=== PATIENT | male | born 1930 | race Caucasian/White ===

== ENCOUNTER 2017-05-04 23:20 | Emergency (ER) | payer OTHER ==
[~2017-05-04] VITALS: Ht 165.1 cm; Wt 76.8 kg
[2017-05-05 00:41] LABS: EOSINOPHIL (%) 3.1 % (0-5); EOSINOPHIL COUNT 0.2 K/uL (0-0.3); HEMATOCRIT 41.6 % (38.0-50.0); IMMATURE GRANULOCYTE (%) 0.3 % (0.0-0.7); INSTRUMENT ABS NEUTROPHIL CT 4.5 K/uL; LYMPHOCYTE COUNT 2.3 K/uL (1.0-2.8); MCH 32.1 PG (29.0-34.0); MCHC 34.1 G/DL (30.0-36.0); MCV 93.9 FL (86-99); MEAN PLAT.VOLUME 9.9 uM^3 (9.0-12.4); MONOCYTE (%) 9.1 % (3-12); MONOCYTE COUNT 0.7 K/uL (0-0.8); NEUTROPHIL (%) 58.1 % (45-76); NEUTROPHIL COUNT 4.5 K/uL (1.8-6.4); PLATELET COUNT 213 K/uL (156-360); RBC DIS.WIDTH-CV 12.3 % (11.8-14.6); RBC DIS.WIDTH-SD 42.9 % (39-53); RED BLOOD COUNT 4.43 M/uL (4.00-5.50); WHITE BLOOD COUNT 7.8 K/uL (4.1-10.2)
[2017-05-05 00:48] LABS: PROTHROMBIN TIME 11.4 SEC (10.2-12.9)
[2017-05-05 00:50] LABS: PTT 29.5 SEC (25-37)
[2017-05-05 00:59] LABS: CHLORIDE 103 mEq/L (99-109); POTASSIUM 4.1 mEq/L (3.7-5.4); SODIUM 135 mEq/L (136-147)
[2017-05-05 01:01] LABS: GLUCOSE 94 mg/dL (70-99)
[2017-05-05 01:02] LABS: ANION GAP 10 MEQ/L (2-14)
[2017-05-05 01:05] LABS: GFR ESTIMATE (CALCULATED) > 59 mL/min/
[2017-05-05 01:06] LABS: UREA NITROGEN (BUN) 15 mg/dL (9-23)
[2017-05-05 04:15] VITALS: BP 133/76
== END 2017-05-05 04:17 ==
LOC: EME 23:20
PROVIDERS: Emergency Medicine
DX: S70.01XA Contusion of right hip, initial encounter (principal); R42 Dizziness and giddiness; W01.0XXA Fall on same level from slipping, tripping and stumbling without subsequent striking against object, initial encounter; Y92.121 Bathroom in nursing home as the place of occurrence of the external cause; K21.9 Gastro-esophageal reflux disease without esophagitis; E78.5 Hyperlipidemia, unspecified; Z87.891 Personal history of nicotine dependence
CPT/HCPCS: 70450; 71020; 72125; 73502; 80048; 81003; 85025; 85610; 85730; 86900; 86901; 93005; 99281; 99285; J7030

== ENCOUNTER 2018-04-13 04:09 | Emergency (ER) | payer OTHER ==
[~2018-04-13] VITALS: Ht 165.1 cm; Wt 77.2 kg
[2018-04-13 05:22] LABS: HEMATOCRIT 38.6 % (38.0-50.0); HEMOGLOBIN 12.8 G/DL (12.5-16.6); MCH 32.4 PG (29.0-34.0); MCHC 33.2 G/DL (30.0-36.0); MCV 97.7 FL (86-99); PLATELET COUNT 195 K/uL (156-360); RBC DIS.WIDTH-CV 13.1 % (11.8-14.6); RBC DIS.WIDTH-SD 46.5 % (39-53); RED BLOOD COUNT 3.95 M/uL (4.00-5.50); WHITE BLOOD COUNT 13.6 K/uL (4.1-10.2)
[2018-04-13 05:42] LABS: CHLORIDE 102 mEq/L (99-109); POTASSIUM 4.6 mEq/L (3.7-5.4); SODIUM 135 mEq/L (136-147)
[2018-04-13 05:48] LABS: CREATININE 1.3 mg/dL (0.6-1.3); GFR ESTIMATE (CALCULATED) 56 mL/min/ (58.99-99999); UREA NITROGEN (BUN) 19 mg/dL (9-23)
[2018-04-13 05:55] LABS: GLUCOSE 404 mg/dL (70-99)
[2018-04-13 05:56] LABS: TROP-I INTERPRETATION POSITIVE
[2018-04-13 05:59] LABS: TROPONIN-I 7.96 ng/mL (0.0-0.30)
[2018-04-13 06:56] LABS: INTER. NORMALIZED RATIO 1.2
[2018-04-13 06:59] LABS: PTT 25.8 SEC (25-37)
[2018-04-13 10:20] VITALS: BP 000/00
== END 2018-04-13 10:28 ==
LOC: EME → EDBD 04:09 → EME 10:28
PROVIDERS: Emergency Medicine
DX: I26.99 Other pulmonary embolism without acute cor pulmonale (principal); Z66 Do not resuscitate; Z51.5 Encounter for palliative care; E11.9 Type 2 diabetes mellitus without complications; E78.5 Hyperlipidemia, unspecified; I10 Essential (primary) hypertension; K21.9 Gastro-esophageal reflux disease without esophagitis; I69.354 Hemiplegia and hemiparesis following cerebral infarction affecting left non-dominant side; Z87.891 Personal history of nicotine dependence
CPT/HCPCS: 70450; 71275; 74177; 80047; 80048; 81003; 83605; 84484; 85027; 85610; 85730; 87040; 87086; 93005; 99281; 99285; J7030